=== PATIENT | male | born 1970 | race Two or more races ===

== ENCOUNTER 2018-04-10 06:22 | Day surgery (SDC) | payer OTHER ==
[~2018-04-10 06:22] MED LIST: FENOFIBRATE145 MG PO; LOSARTAN POTAS100 MG PO; METOPROLOL SUCC50 MG PO; SYNT PO
[2018-04-10] MEDS ORDERED: PERCOCET 5-3251 EACH PO (10:33)
== END 2018-04-10 12:40 | disposition home or self-care (01) ==
LOC: CIR.AMB 06:22
DX: E06.3 Autoimmune thyroiditis (principal)

== ENCOUNTER 2019-08-11 07:32 | Outpatient (CLI) | payer OTHER ==
[~2019-08-11 07:32] MED LIST changes: +PERCOCET 5-3251 EACH PO
== END 2019-08-11 11:29 | disposition home or self-care (01) ==
LOC: SONOGRAMA 07:32
DX: E04.2 Nontoxic multinodular goiter (principal)

== ENCOUNTER → 2022-02-11 | Emergency (ER) | payer OTHER ==
[~2022-02-11] VITALS: Ht 167.6 cm; Wt 96.2 kg
[~2022-02-11] MED LIST changes: +SYNTHROID137 MCG
== END | disposition left against medical advice (07) ==
LOC: ER 13:18
DX: R07.89 Other chest pain (principal)